=== PATIENT | male | born 1985 | race Asian ===

== ENCOUNTER 2019-04-27 14:55 | Outpatient (CLI) | payer BC ==
--- NOTE | 2019-04-28 07:43 | RAD ---
EXAM: AP view thoracolumbar spine PROVIDED CLINICAL HISTORY: Spine anomaly. COMPARISON: None FINDINGS: AP view of the thoracolumbar spine is obtained. No vertebral anomalies are seen. There is slight S-sh aped curvature of the thoracolumbar spine. There is approximately 6 degrees of right convex curvature involving the thoracic spine centered at the T8 vertebral body. Less than 5 degrees of left convex curvature of the lumbar spine is noted. No other osseous abnormality. IMPRESSION: Slight S-shaped curvature thoracolumbar spine as described above. Transcribed Date/Time: 04/28/2019 7:42 AM
== END 2019-04-27 14:56 | disposition home or self-care (01) ==
LOC: BICRAD 14:55
PROVIDERS: ATTEND Internal Medicine
DX: Q76.49 Other congenital malformations of spine, not associated with scoliosis (principal)
CPT/HCPCS: 72081